=== PATIENT | female | born 1990 | race Caucasian/White ===

== ENCOUNTER 2018-02-21 14:15 | Outpatient (CLI) | END 2018-02-21 15:50 | disposition home or self-care (01) ==

== ENCOUNTER 2018-02-23 10:43 | Outpatient (CLI) | END 2018-02-23 12:30 | disposition home or self-care (01) ==

== ENCOUNTER 2018-02-24 12:16 | Outpatient (CLI) | END 2018-02-24 15:50 | disposition home or self-care (01) ==

== ENCOUNTER 2018-02-26 12:50 | Outpatient (CLI) | END 2018-02-26 16:00 | disposition home or self-care (01) ==

== ENCOUNTER 2018-03-04 07:45 | Inpatient (IN) | END 2018-03-08 12:10 | disposition home or self-care (01) | DRG 776 ==